=== PATIENT | female | born 1945 | race Caucasian/White ===

== ENCOUNTER 2018-02-25 09:58 | Day surgery (SDC) | payer OTHER ==
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
[2018-02-25 10:10] LABS: Absolute Lymphocytes (CBC) 1.5 K/uL (0.7-4.9); Absolute Monocytes 0.5 K/uL (0.1-1.3); Absolute Neutrophil 4.3 K/uL (1.8-8.0); Basophils % 0.4 % (0-1.3); Eosinophils % 1.9 % (0-4.4); Hematocrit 38.1 % (36.0-45.0); Lymphocytes % 22.6 % (15.3-44.8); MCH 30.3 pg (27.0-35.0); MCV 89.3 fL (80-100); MPV 9.5 fL (7.6-11.3); Monocytes % 8.4 % (3.3-12.3); RBC Red Blood Cell Count 4.27 M/uL (3.86-4.86)
[2018-02-25 10:25] LABS: Potassium 3.8 mmol/L (3.5-5.1)
[2018-02-25] MEDS ORDERED: PHENYLEPHRINE 10% OPTH 5ML ONE (11:49)
[2018-02-25] MEDS ORDERED: LIDOCAINE 2% MPF 5 ML VIAL ONE (11:49)
[2018-02-25] MEDS ORDERED: BUPIVACAINE 0.25% PF 10 ML VIAL ONE (11:49)
[2018-02-25] MEDS ORDERED: CYCLOPENTOLATE 1% OPTH 2 ML ONE (11:49)
[2018-02-25] MEDS ORDERED: NA CHLORIDE 0.9% 500 ML ONE (11:49)
[2018-02-25] MEDS ORDERED: TETRACAINE HCL 0.5% 2ML OPTH ONE (11:50)
[2018-02-25] MEDS ORDERED: CYCLOPENTOLATE 1% OPTH 2 ML OPTH ONE ×2 (12:31→12:36)
[2018-02-25] MEDS ORDERED: NS 0.9% VIAL 10 ML ONE (12:31)
[2018-02-25] MEDS ORDERED: PHENYLEPHRINE 10% OPTH 5ML OPTH ONE ×2 (12:31→12:36)
[2018-02-25] MEDS: DUOVISC 1 KIT OPTH ONE ×2 (13:28→13:58)
[2018-02-25] MEDS: BALANCED SALT IRRIG PLAIN 500 ML BTL IRR ONE ×2 (13:28→13:58)
[2018-02-25] MEDS: EPINEPHRINE/PF 1 MG/ML AMP ONE ×2 (13:28→13:58)
[2018-02-25] MEDS: MOXIFLOXACIN HCL 10 DROPS/ML **OR USE OPTH ONE ×2 (13:29→13:58)
[2018-02-25] MEDS ORDERED: LIDOCAINE 2% INJ, MPF 2 ML 1 ML ONE (14:02)
[2018-02-25] MEDS ORDERED: PROPOFOL 200 MG/20 ML VIAL IV ONE (14:02)
[2018-02-25] MEDS ORDERED: FENTANYL CITR 100 MCG/2 ML ONE (14:02)
[2018-02-25] MEDS ORDERED: EPHEDRINE SULF 50 MG/10 ML SYR ONE (14:16)
[2018-02-25] MEDS ORDERED: ONDANSETRON HCL 40 MG/20 ML VIAL ONE (14:19)
--- NOTE | 2018-02-25 14:37 | P.BOP ---
Preoperative diagnosis: Nuclear sclerotic cataract OD Postoperative diagnosis: Same Primary procedure: Phacoemulsification with IOL OD Estimated blood loss: None Anesthesia: General Complications: None Implants: [id number] +23.5 Transferred to: Other (Day surgery) Condition: Good
--- NOTE | 2018-02-26 00:52 | OP ---
Date of Procedure: 02/25/2018 Surgeon: Shayla Cain MD Anesthesiologist: 1. Carlos Lindsay CRNA. 2. Collins Shields MD. Preoperative Diagnosis: Nuclear sclerotic cataract, right eye. Operation Performed: Phacoemulsification with intraocular lens implant, right eye. Anesthesia: General Complications: Description Of Procedure: In the operating room the patient was prepped and draped in the usual sterile fashion for ophthalmic surgery. A lid speculum was placed in the right eye. Two paracentesis sites were made superiorly and inferiorly in the limbal cornea. Viscoat was placed in the anterior chamber and a crescent blade was used to make a corneal groove and tunnel, and a keratome was used to enter the anterior chamber. Provisc was placed in the anterior chamber and a 360 degree capsulotomy was performed with a cystitome. The lens was hydrodissected with BSS and rotated freely. The lens was removed with a stop and chop technique. 5.24 phaco CDE was used to remove the lens. Residual cortex was removed with the irrigation and aspiration. Provisc was placed in the capsular bag. A [id number] +23.5 lens was placed in the capsular bag without complications. Irrigation and aspiration was used to remove residual viscoelastic. The paracentesis sites were hydrated with BSS. The wound and paracentesis sites were inspected and found to be watertight. Vigamox 0.07 cc was placed intracamerally at the end of the procedure. The eye was irrigated with balanced salt solution. The eye was patched with a soft cotton patch and Chapman metal shield. The patient was returned to day surgery in good condition. Comments: Discharge Instructions: Ms. Spann is discharged to home in good condition and is to follow up with Dr. Cain in the morning. SUJEY/JONY Voice ID: [id number] Report ID: [id number]
== END 2018-02-25 15:57 | disposition home or self-care (01) ==
LOC: OR 09:58
PROVIDERS: ATTEND Ophthalmology Retina Specialist
PROC: 08RJ3JZ Replacement of Right Lens with Synthetic Substitute, Percutaneous Approach (ICD-10-PCS; principal; 2018-02-25 12:00)
DX: H25.11 Age-related nuclear cataract, right eye (principal); G20 Parkinson's disease; Z88.2 Allergy status to sulfonamides; Z83.3 Family history of diabetes mellitus
CPT/HCPCS: 36415; 66984; 80048; 85025; J0171; J2405; J3010; J3490

== ENCOUNTER 2018-03-25 09:46 | Day surgery (SDC) | payer OTHER ==
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
[2018-03-25] MEDS ORDERED: NS 0.9% VIAL 10 ML ONE (09:58)
[2018-03-25] MEDS ORDERED: CYCLOPENTOLATE 1% OPTH 2 ML ONE (10:18)
[2018-03-25] MEDS ORDERED: NA CHLORIDE 0.9% 500 ML ONE (10:19)
[2018-03-25] MEDS ORDERED: PHENYLEPHRINE 10% OPTH 5ML ONE (10:19)
[2018-03-25] MEDS ORDERED: CYCLOPENTOLATE 1% OPTH 2 ML OPTH ONE ×2 (11:02→11:07)
[2018-03-25] MEDS ORDERED: PHENYLEPHRINE 10% OPTH 5ML OPTH ONE ×2 (11:02→11:07)
[2018-03-25] MEDS ORDERED: LIDOCAINE 2% MPF 5 ML VIAL ONE (12:20)
[2018-03-25] MEDS ORDERED: FENTANYL CITR 100 MCG/2 ML ONE (12:20)
[2018-03-25] MEDS ORDERED: PROPOFOL 200 MG/20 ML VIAL IV ONE (12:20)
[2018-03-25] MEDS ORDERED: MIDAZOLAM HCL 2 MG/2 ML INJ ONE (12:21)
[2018-03-25] MEDS: EPINEPHRINE/PF 1 MG/ML AMP ONE ×2 (12:22→13:26)
[2018-03-25] MEDS: BALANCED SALT IRRIG PLAIN 500 ML BTL IRR ONE ×2 (12:22→13:26)
[2018-03-25] MEDS: DUOVISC 1 KIT OPTH ONE ×2 (12:23→13:45)
[2018-03-25] MEDS: MOXIFLOXACIN HCL 10 DROPS/ML **OR USE OPTH ONE ×2 (12:24→13:45)
[2018-03-25] MEDS ORDERED: EPHEDRINE SULF 50 MG/10 ML SYR ONE (13:31)
[2018-03-25] MEDS ORDERED: NA CHLORIDE 0.9% 1,000 ML ONE (13:52)
--- NOTE | 2018-03-25 13:52 | P.BOP ---
Preoperative diagnosis: Nuclear sclerotic and cortical cataract OS Postoperative diagnosis: Same Primary procedure: Phacoemulsification with IOL OS Estimated blood loss: None Anesthesia: General Complications: None Implants: [id number] +23.5 Transferred to: Recovery Room Condition: Good
--- NOTE | 2018-03-26 01:09 | OP ---
Date of Procedure: 03/25/2018 Surgeon: Shayla Cain MD Anesthesiologist: Bill Lindsay CRNA; Kellee Alarcon CRNA; and Collins Shields M.D. Preoperative Diagnosis: Nuclear sclerotic and cortical cataract, left eye. Operation Performed: Phacoemulsification with intraocular lens implant, left eye. Anesthesia: General. Complications: None. Description Of Procedure: In the operating room the patient was prepped and draped in the usual ster ile fashion for ophthalmic surgery. A lid speculum was placed in the left eye. Two paracentesis sit es were made superiorly and inferiorly in the limbal cornea. Viscoat was placed in the anterior salvatore melba and a crescent blade was used to make a corneal groove and tunnel, and a keratome was used to ent er the anterior chamber. Provisc was placed in the anterior chamber and a 360 degree capsulotomy was performed with a cystitome. The lens was hydrodissected with BSS and rotated freely. The lens was removed with a stop and chop technique. A 6.01 phaco CDE was used to remove the lens. Residual sandhya ex was removed with the irrigation and aspiration. Provisc was placed in the capsular bag. A [id number] +23.5 lens was placed in the capsular bag without complications. Irrigation and aspiration were used to remove residual viscoelastic. The paracentesis sites were hydrated with BSS. The wound and para centesis sites were inspected and found to be watertight. Vigamox 0.07 cc was placed intracamerally at the end of the procedure. The eye was irrigated with balanced salt solution. The eye was patched with a soft cotton patch and Chapman metal shield. The patient was returned to day surgery in good condition. Comments: Discharge Instructions: Ms. Spann is discharged to home in good condition and is to follow up with Dr. Cain in the morning. SUJEY/MODAbdiaziz Voice ID: [id number] Report ID: [id number]
== END 2018-03-25 15:05 | disposition home or self-care (01) ==
LOC: OR 09:46
PROVIDERS: ATTEND Ophthalmology Retina Specialist
PROC: 08RK3JZ Replacement of Left Lens with Synthetic Substitute, Percutaneous Approach (ICD-10-PCS; principal; 2018-03-25 11:15)
DX: H25.12 Age-related nuclear cataract, left eye (principal); H25.012 Cortical age-related cataract, left eye; G20 Parkinson's disease; Z88.2 Allergy status to sulfonamides; Z83.3 Family history of diabetes mellitus
CPT/HCPCS: 66984; J0171; J2250; J3010; J7030